=== PATIENT | female | born 1950 | race Caucasian/White ===

== ENCOUNTER 2018-06-04 06:55 | Day surgery (SDC) | payer OTHER ==
[~2018-06-04 06:55] MED LIST: COZAAR50 MG PO; NEURONTIN300 MG PO; PEPCID20 MG PO; SINGULAIR10 MG PO
== END 2018-06-04 11:30 | disposition home or self-care (01) ==
LOC: CIR.AMB 06:55
DX: C20 Malignant neoplasm of rectum (principal)